=== PATIENT | male | born 1970 | race Two or more races ===

== ENCOUNTER 2023-06-05 20:38 | Emergency (ER) | payer OTHER ==
[~2023-06-05] VITALS: Ht 177.8 cm; Wt 79.4 kg
[2023-06-05] MEDS ORDERED: ATACAND32 MG (20:45)
[2023-06-05] MEDS ORDERED: ENALAPRILAT DIHYDRATE 1.25 MG/ML VIAL IV STA (21:15)
[2023-06-05 22:11] LABS: HEMOGLOBIN 16.7 g/dL (13-16.00); MEAN CELL VOLUME 87.2 fL (80.0-100.00); MEAN CORPUSCULAR HEMOGLOBIN 30.5 pg (27.00-32.0); MEAN CORPUSCULAR HGB CONC 34.9 g/dl (32.0-36.0); PLATELET COUNT 204 K/uL (150-450); RED CELL DISTRIBUTION WIDTH 13.9 % (11.5-14.5)
[2023-06-05 23:52] LABS: CALCIUM 9.7 mg/dL (8.5-10.1); CREATININE SERUM 1.3 mg/dL (0.70-1.30); GFR 57.53; POTASSIUM 4.95 mEq/L (3.5-5.1)
== END 2023-06-05 23:54 | disposition home or self-care (01) ==
LOC: ER 20:39
PROVIDERS: General Practice
DX: R42 Dizziness and giddiness (principal)